=== PATIENT | male | born 1935 | race Caucasian/White ===

== ENCOUNTER → 2017-11-19 12:27 | Outpatient (CLI) | payer MEDICARE, BC, OTHER, SELFPAY ==
[2017-11-19 12:30] VITALS: PULSE 76; PULSE 80; PULSE 81; PULSE 84; PULSE 88; PULSE 89; O2SAT 97; O2SAT 98
--- NOTE | 2017-11-21 07:27 | WT_ITS ---
PSN 6 Minute Walk Test - 6 Minute Walk Test 6 Minute Walk Test: 6 Minute Walk Test PSN:6-Minute Walk Test Start: 11/19/17 14: 21 Freq: Status: Active Protocol: [id number] Document 11/19/17 12:30 JLA (Rec: 11/19/17 14:27 JLA [id number]) 6 Minute Walk Test Date Performed 11/19/17 Time Performed 12:30 Height 5 ft 8 in Weight: 197 lb 4.97 oz Weight in Pounds 197.[address]: Jaylene Young Assistive device used: None Pre-test Oxygen Delivery Method Room Air Pulse Ox (%) 98 Pulse Rate (60-100 beats/min) 76 Dyspnea Dudley Scale (0-10) 1 Exertion Dudley Scale (6-20) 6 1st minute Oxygen Delivery Method Room Air Pulse Ox (%) 97 Pulse Rate (60-100 beats/min) 81 2nd minute Oxygen Delivery Method Room Air Pulse Ox (%) 97 Pulse Rate (60-100 beats/min) 84 3rd minute Oxygen Delivery Method Room Air Pulse Ox (%) 98 Pulse Rate (60-100 beats/min) 88 4th minute Oxygen Delivery Method Room Air Pulse Ox (%) 98 Pulse Rate (60-100 beats/min) 89 Reported Symptoms Increased Work of Breathing 5th minute Oxygen Delivery Method Room Air Pulse Ox (%) 97 Pulse Rate (60-100 beats/min) 89 Reported Symptoms Increased Work of Breathing 6th minute Oxygen Delivery Method Room Air Pulse Ox (%) 98 Pulse Rate (60-100 beats/min) 84 Dyspnea Dudley Scale (0-10) 8 Exertion Dudley Scale (6-20) 13 Reported Symptoms Increased Work of Breathing Post-test Oxygen Delivery Method Room Air Pulse Ox (%) 98 Pulse Rate (60-100 beats/min) 80 Full Laps Walked 22 Partial Lap, Number of Tiles Walked 46 Total Distance Walked (ft) 1344 - Interpretation Interpretation: The patient ambulated 1344 feet over the course of 6 minutes on room air without assistive devices or breaks. Pretesting oxygen saturation was noted to be 98% on room air. With ambulation, the yvette oxygen saturation was 97%. There was no significant exertional oxygen desaturation. - Recommendations Recommendations: There is no indication for the use of supplemental oxygen at this time.
== END ==
PROVIDERS: Visit Provider Nurse Practitioner Acute Care
DX: J44.9 Chronic obstructive pulmonary disease, unspecified (principal)
CPT/HCPCS: 94618

== ENCOUNTER 2018-03-23 02:06 | Inpatient (IN) | payer MEDICARE, BC, OTHER, SELFPAY ==
[2018-03-23] VITALS (12 sets, daily range): BP systolic 141–153; BP diastolic 60–89; PULSE 65–95; RESP 16–18; TEMP 36.6–36.9; O2SAT 95–100; BMI 30.1
--- NOTE | 2018-03-23 03:33 | PCM.HP.STD ---
Problem List (1) COPD (chronic obstructive pulmonary disease) Status: Chronic Qualifiers: History of Present Illness Date of Admission: 03/23/18 Chief Complaint: chills, rigors and vomitting x 1 day The patient is a 83 year old M with a significant history of CAD status post quadruple bypass; hypertension; COPD who presented with chills, rigors, and vomiting 1 hour after eating cornered beef sandwich. He originally presented to [facility] where an abdominal CT was done because of the vomiting. The abdominal CT was remarkable for left lower lobe focal infiltrate. Because patient sees Dr. Kenny Hanna and Dr. Antwon Jacobson certified scrub tech a decision was made to transfer the patient to our hospital. Patient has a chronic cough which is no change from his baseline. Also he has a yellow productive cough in the morning that is also no change from his baseline. At [facility] patient received azithromycin; ceftriaxone and Zofran. Blood cultures were done at [facility]. Past Medical History Past Medical History (Chronic Problems): Chronic Problems (Last Reviewed 03/23/18 @ 03:41 by Marciano Addison MD) Carotid artery disease (Chronic) Cerebral infarction (Chronic) Gross hematuria (Chronic) Dyspnea (Chronic) Cough (Chronic) Wheezing (Chronic) Asthma (Chronic) Hypertensive urgency (Chronic) Sinusitis (Chronic) Hypertension (Chronic) Atherosclerotic heart disease of [place] coronary artery without angina pectoris (Chronic) Hyperlipidemia (Chronic) COPD (chronic obstructive pulmonary disease) (Chronic) Medical History: Medical History (Last Reviewed 03/23/18 @ 03:41 by Marciano Addison MD) History of CVA (cerebrovascular accident) (Acute) Z86.73 Carotid artery disease (Chronic) I77.9 Cerebral infarction (Chronic) I63.9 Gross hematuria (Chronic) R31.0 Dyspnea (Chronic) R06.00 Cough (Chronic) R05 Wheezing (Chronic) R06.2 Asthma (Chronic) J45.909 Acute bronchitis (Acute) J20.9 Hypertensive urgency (Chronic) I16.0 Sinusitis (Chronic) J32.9 Asthma exacerbation (Resolved) J45.901 Hypertension (Chronic) I10 Atherosclerotic heart disease of [place] coronary artery without angina pectoris (Chronic) I25.10 Hyperlipidemia (Chronic) E78.5 COPD (chronic obstructive pulmonary disease) (Chronic) J44.9 History of atrial fibrillation (Resolved) Z86.79 Dizziness (Inactive) R42 Allergies atorvastatin [From Lipitor] Allergy (Severe, Verified 11/11/17 07:06) Throat swelling and cough apixaban [From Eliquis] Adverse Reaction (Intermediate, Verified 11/11/17 07:06) Nose bleed dabigatran etexilate [From Pradaxa] Adverse Reaction (Intermediate, Verified 11/11/17 07:06) Hematuria alcohol Adverse Reaction (Verified 03/23/18 03:13) DOESNT FEEL GOOD CAN DRINK OUZO THATS IT PER PT Home Medications: Ambulatory Orders Medication Instructions Recorded Aspirin [Aspir-Low] 81 mg PO DAILY 08/25/16 Losartan Potassium [Cozaar] 50 mg PO BID 08/25/16 Metoprolol Tartrate [Lopressor 50 mg PO BID 08/25/16 (Beta Leonard)] albuterol sulfate HFA 90 2 puff INHALATION Q4H PRN #3 device 07/29/17 mcg/actuation aerosol inhaler fluticasone-salmeterol 230 mcg-21 2 puff INHALATION BID 11/11/17 mcg/actuation HFA aerosol inhaler Azelastine HCl 1 spray NASAL QHS 03/23/18 Fluticasone Propionate 1 spray NASAL DAILY 03/23/18 Surgical History: Surgical History (Last Reviewed 03/23/18 @ 03:41 by Marciano Addison MD) Status post nasal endoscopy with nasal polypectomy (Resolved) Z98.890, Z87.09 History of hernia repair (Resolved) Z98.890, Z87.19 History of tonsillectomy (Resolved) Z90.89 History of appendectomy (Resolved) Z90.49 S/P CABG x 4 (Resolved) Z95.1 Surgical History: tonsillectomy, - - CABG Lives: Spouse/ Significant Other Smoking Status: Former smoker Alcohol: Occasional - *Family History Maternal Family History: Family History (Last Reviewed 03/23/18 @ 03:41 by Marciano Addison MD) Mother Colon cancer Father Cancer Daughter Arthritis Review of Systems Constitutional: Reports: Chills HEENT: Reports: Difficulty Hearing. Denies: Head Aches, Sinus Congestion, Sinus Drainage Cardiovascular: Denies: Chest Pain, Palpitations Respiratory: Reports: Cough - Chronic Gastrointestinal: Reports: Nausea, Vomiting. Denies: Abdominal Pain Genitourinary: Reports: Incontinence - accidentally today at about the time of his presenting symptoms. Denies: Dysuria Musculoskeletal: Denies: Joint Pain, Joint Tenderness Skin: Denies: Rash, Wounds Neurological: Denies: Numbness, Tingling, Focal weakness Psychiatric: Denies: Anxiety, Depression, Homicidal Ideations, Suicidal Ideations Hematologic/ Lymphatic: Denies: Easy Bruising, Easy Bleeding VTE Information - Inpt Only VTE Present on Admission: No VTE Mechan Device Prophylaxis: None VTE Pharm Prophylaxis ordered?: Yes - Physical Exam General: Alert, Oriented x3, Cooperative HEENT: Atraumatic, PERRLA, EOMI, Normocephalic Neck: Supple, No JVD, Negative Carotid Bruits Lungs: Wheezes Cardiovascular: Regular rate, Normal S1, Normal S2 Abdomen: Bowel Sounds Present, Soft, Non Tender Extremities: No edema, Capillary Refill Less than 3 Seconds Skin: No rashes, No breakdown Musculoskeletal: No Tenderness to Palpation of Joints or Extremities Neurological: - - Hare of hearinng. Hearing aids in place. Grossly normal otherwise. Psych/Mental Status: Normal Affect Vital Signs Temp Pulse Resp BP Pulse Ox 98.3 F 86 18 153/84 H 97 03/23/18 03:04 03/23/18 03:04 03/23/18 03:04 03/23/18 03:04 03/23/18 03:04 Oxygen Delivery Method Room Air Weight: 89.9 kg Body Mass Index (BMI) 30.1 Assessment/Plan All Active Problems (Last Reviewed 03/23/18 @ 03:41 by Marciano Addison MD) Status post nasal endoscopy with nasal polypectomy (Resolved) History of hernia repair (Resolved) History of tonsillectomy (Resolved) History of appendectomy (Resolved) History of CVA (cerebrovascular accident) (Acute) Acute bronchitis (Acute) Asthma exacerbation (Resolved) S/P CABG x 4 (Resolved) History of atrial fibrillation (Resolved) The patient is a 83 year old M with a significant history of CAD status post quadruple bypass; hypertension; COPD who presented with chills, rigors, and vomiting 1 hour after eating cornered beef sandwich. He originally presented to [facility] where an abdominal CT was done because of the vomiting. The abdominal CT was remarkable for left lower lobe focal infiltrate. Because patient sees Dr. Kenny Hanna and Dr. Antwon Jacobson certified scrub tech a decision was made to transfer the patient to our hospital. Patient has a chronic cough which is no change from his baseline. Also he has a yellow productive cough in the morning that is also no change from his baseline. At [facility] patient received azithromycin; ceftriaxone and Zofran. Blood cultures were done at [facility]. Community-acquired pneumonia Rocephin and azithromycin continued Streptococcus and Legionella antigen ordered DuoNeb scheduled and albuterol as needed Percussion therapy COPD Breathing treatment as above. Hypertension Blood pressure was within goal at the time of admission. Cozaar and metoprolol continued. DVT prophylaxis Subcutaneous heparin. Code Visit Inpatient E&M: 67572 Init Hosp L3
--- NOTE | 2018-03-23 03:40 | HP.PCM_ITS ---
Problem List (1) COPD (chronic obstructive pulmonary disease) Status: Chronic Qualifiers: History of Present Illness Date of Admission: 03/23/18 Chief Complaint: chills, rigors and vomitting x 1 day The patient is a 83 year old M with a significant history of CAD status post quadruple bypass; hypertension; COPD who presented with chills, rigors, and vomiting 1 hour after eating cornered beef sandwich. He originally presented to [facility] where an abdominal CT was done because of the vomiting. The abdominal CT was remarkable for left lower lobe focal infiltrate. Because patient sees Dr. Kenny Hanna and Dr. Antwon Jacobson title insurance sales representative a decision was made to transfer the patient to our hospital. Patient has a chronic cough which is no change from his baseline. Also he has a yellow productive cough in the morning that is also no change from his baseline. At [facility] patient received azithromycin; ceftriaxone and Zofran. Blood cultures were done at [facility]. Past Medical History Past Medical History (Chronic Problems): Chronic Problems (Last Reviewed 03/23/18 @ 03:41 by Marciano Addison MD) Carotid artery disease (Chronic) Cerebral infarction (Chronic) Gross hematuria (Chronic) Dyspnea (Chronic) Cough (Chronic) Wheezing (Chronic) Asthma (Chronic) Hypertensive urgency (Chronic) Sinusitis (Chronic) Hypertension (Chronic) Atherosclerotic heart disease of [place] coronary artery without angina pectoris (Chronic) Hyperlipidemia (Chronic) COPD (chronic obstructive pulmonary disease) (Chronic) Medical History: Medical History (Last Reviewed 03/23/18 @ 03:41 by Marciano Addison MD) History of CVA (cerebrovascular accident) (Acute) Z86.73 Carotid artery disease (Chronic) I77.9 Cerebral infarction (Chronic) I63.9 Gross hematuria (Chronic) R31.0 Dyspnea (Chronic) R06.00 Cough (Chronic) R05 Wheezing (Chronic) R06.2 Asthma (Chronic) J45.909 Acute bronchitis (Acute) J20.9 Hypertensive urgency (Chronic) I16.0 Sinusitis (Chronic) J32.9 Asthma exacerbation (Resolved) J45.901 Hypertension (Chronic) I10 Atherosclerotic heart disease of [place] coronary artery without angina pectoris (Chronic) I25.10 Hyperlipidemia (Chronic) E78.5 COPD (chronic obstructive pulmonary disease) (Chronic) J44.9 History of atrial fibrillation (Resolved) Z86.79 Dizziness (Inactive) R42 Allergies atorvastatin [From Lipitor] Allergy (Severe, Verified 11/11/17 07:06) Throat swelling and cough apixaban [From Eliquis] Adverse Reaction (Intermediate, Verified 11/11/17 07:06) Nose bleed dabigatran etexilate [From Pradaxa] Adverse Reaction (Intermediate, Verified 09/26 07:06) Hematuria alcohol Adverse Reaction (Verified 03/23/18 03:13) DOESNT FEEL GOOD CAN DRINK OUZO THATS IT PER PT Home Medications: Ambulatory Orders Medication Instructions Recorded Aspirin [Aspir-Low] 81 mg PO DAILY 08/25/16 Losartan Potassium [Cozaar] 50 mg PO BID 08/25/16 Metoprolol Tartrate [Lopressor 50 mg PO BID 08/25/16 (Beta Leonard)] albuterol sulfate HFA 90 2 puff INHALATION Q4H PRN #3 device 07/29/17 mcg/actuation aerosol inhaler fluticasone-salmeterol 230 mcg-21 2 puff INHALATION BID 11/11/17 mcg/actuation HFA aerosol inhaler Azelastine HCl 1 spray NASAL QHS 03/23/18 Fluticasone Propionate 1 spray NASAL DAILY 03/23/18 Surgical History: Surgical History (Last Reviewed 03/23/18 @ 03:41 by Marciano Addison MD) Status post nasal endoscopy with nasal polypectomy (Resolved) Z98.890, Z87.09 History of hernia repair (Resolved) Z98.890, Z87.19 History of tonsillectomy (Resolved) Z90.89 History of appendectomy (Resolved) Z90.49 S/P CABG x 4 (Resolved) Z95.1 Surgical History: tonsillectomy, - - CABG Lives: Spouse/ Significant Other Smoking Status: Former smoker Alcohol: Occasional - *Family History Maternal Family History: Family History (Last Reviewed 03/23/18 @ 03:41 by Marciano Addison MD) Mother Colon cancer Father Cancer Daughter Arthritis Review of Systems Constitutional: Reports: Chills HEENT: Reports: Difficulty Hearing. Denies: Head Aches, Sinus Congestion, Sinus Drainage Cardiovascular: Denies: Chest Pain, Palpitations Respiratory: Reports: Cough - Chronic Gastrointestinal: Reports: Nausea, Vomiting. Denies: Abdominal Pain Genitourinary: Reports: Incontinence - accidentally today at about the time of his presenting symptoms. Denies: Dysuria Musculoskeletal: Denies: Joint Pain, Joint Tenderness Skin: Denies: Rash, Wounds Neurological: Denies: Numbness, Tingling, Focal weakness Psychiatric: Denies: Anxiety, Depression, Homicidal Ideations, Suicidal Ideations Hematologic/ Lymphatic: Denies: Easy Bruising, Easy Bleeding VTE Information - Inpt Only VTE Present on Admission: No VTE Mechan Device Prophylaxis: None VTE Pharm Prophylaxis ordered?: Yes - Physical Exam General: Alert, Oriented x3, Cooperative HEENT: Atraumatic, PERRLA, EOMI, Normocephalic Neck: Supple, No JVD, Negative Carotid Bruits Lungs: Wheezes Cardiovascular: Regular rate, Normal S1, Normal S2 Abdomen: Bowel Sounds Present, Soft, Non Tender Extremities: No edema, Capillary Refill Less than 3 Seconds Skin: No rashes, No breakdown Musculoskeletal: No Tenderness to Palpation of Joints or Extremities Neurological: - - Hare of hearinng. Hearing aids in place. Grossly normal otherwise. Psych/Mental Status: Normal Affect Vital Signs Temp Pulse Resp BP Pulse Ox 98.3 F 86 18 153/84 H 97 03/23/18 03:04 03/23/18 03:04 03/23/18 03:04 03/23/18 03:04 03/23/18 03:04 Oxygen Delivery Method Room Air Weight: 89.9 kg Body Mass Index (BMI) 30.1 Assessment/Plan All Active Problems (Last Reviewed 03/23/18 @ 03:41 by Marciano Addison MD) Status post nasal endoscopy with nasal polypectomy (Resolved) History of hernia repair (Resolved) History of tonsillectomy (Resolved) History of appendectomy (Resolved) History of CVA (cerebrovascular accident) (Acute) Acute bronchitis (Acute) Asthma exacerbation (Resolved) S/P CABG x 4 (Resolved) History of atrial fibrillation (Resolved) The patient is a 83 year old M with a significant history of CAD status post quadruple bypass; hypertension; COPD who presented with chills, rigors, and vomiting 1 hour after eating cornered beef sandwich. He originally presented to [facility] where an abdominal CT was done because of the vomiting. The abdominal CT was remarkable for left lower lobe focal infiltrate. Because patient sees Dr. Kenny Hanna and Dr. Antwon Jacobson title insurance sales representative a decision was made to transfer the patient to our hospital. Patient has a chronic cough which is no change from his baseline. Also he has a yellow productive cough in the morning that is also no change from his baseline. At [facility] patient received azithromycin; ceftriaxone and Zofran. Blood cultures were done at [facility]. Community-acquired pneumonia Rocephin and azithromycin continued Streptococcus and Legionella antigen ordered DuoNeb scheduled and albuterol as needed Percussion therapy COPD Breathing treatment as above. Hypertension Blood pressure was within goal at the time of admission. Cozaar and metoprolol continued. DVT prophylaxis Subcutaneous heparin. Code Visit Inpatient E&M: 67880 Init Hosp L3
[2018-03-23 05:03] LABS: Absolute Lymphocyte Count 0.87 X10^3/ul (0.83-4.51); Absolute Neutrophil Count 16.2 X10^3/uL (2.0-7.7); Basophil# 0.02 X10^3/uL; Basophil% 0.1 % (0-1); Eosinophil# 0.01 X10^3/uL; Eosinophils% 0.1 % (0-5); Hematocrit 44.7 % (40-54); Hemoglobin 15.4 g/dl (13.0-16.5); Lymphocyte # 0.87 X10^3/ul (4.0); Lymphocyte % 4.7 % (19-41); Mean Corp Hgb Conc 34.5 g/gl (32-36); Mean Corpuscular Hgb 29.7 pg (27.0-32.0); Mean Corpuscular Volume 86.1 fL (80-94); Mean Platelet Vol. 9.3 fl (6.2-12.0); Monocyte# 1.29 X10^3/uL; Neutrophil # 16.23 X10^3/uL (2.7-7.7); Neutrophil % 87.8 % (47-70); Platelet Count 205 K/mm3 (150-450); RBC Distribution Width CV 13.9 % (11.6-14.6); Red Blood Count 5.19 M/mm3 (4.6-6.2); White Blood Count 18.5 K/mm3 (4.4-11.0)
[2018-03-23 05:16] LABS: Anion Gap 11 (5-15); BUN 19 mg/dL (7-18); BUN/Creat Ratio 15.4 RATIO (10-20); Calcium,Total 8.9 mg/dL (8.5-10.1); Chloride 105 mmol/L (98-107); Creatinine, Serum 1.23 mg/dL (0.70-1.30); EST Glomerular Filtration Rate 60 mL/min (>60); Est Glom Filt Rate - Afr Amer 73 mL/min (>60); Estimated Creatinine Clearance 45.57 ml/min; Glucose 134 mg/dL (74-106); Potassium 3.9 mmol/L (3.5-5.1); Sodium Level 141 mmol/L (136-145)
[2018-03-23 05:17] LABS: POSITIVE COUNT NO; POSITIVE DIFFERENTIAL NO; POSITIVE MORPHOLOGY NO
[2018-03-23] MEDS: Ipratropium/Albuterol Sulfate 3 ML AMPUL.NEB INHALATION ×4 (06:52→22:39)
[2018-03-23] MEDS: Budesonide Respules 0.5 MG/2 ML AMPUL.NEB. INHALATION ×2 (06:53→22:39)
[2018-03-23] MEDS: guaiFENesin 1,200 MG Tablet 1200 MG PO ×2 (08:28→21:04)
[2018-03-23] MEDS: Losartan Potassium 50 MG Tablet PO ×2 (08:28→21:04)
[2018-03-23] MEDS: Aspirin E.C. 81 MG Tablet PO (08:28)
[2018-03-23] MEDS: Heparin Injection (Vial) 5,000 UNIT/ML VIAL 5000 UNIT SC ×2 (08:29→21:03)
[2018-03-23] MEDS: Metoprolol Tartrate 50 MG Tablet PO ×2 (08:29→21:05)
[2018-03-23] MEDS: Fluticasone 0.05% 1 SPRAY NASAL.SRY NASAL (08:38)
--- NOTE | 2018-03-23 15:46 | CASEMGMT ---
JADA CM Assessment complete, see link. DC Plan: Home -Pt stated his did not renew her [place] truck driver's license so she cannot pick pt up tomorrow. He will be calling local friends for ride home. Antony ALVES RN ACM
--- NOTE | 2018-03-23 16:19 | PCM.PN.HOSP ---
Vitals/I&O's: Vital Signs Temp Pulse Resp BP Pulse Ox 98.1 F 74 16 146/69 H 97 03/23/18 14:30 03/23/18 15:12 03/23/18 15:12 03/23/18 14:30 03/23/18 14:30 Oxygen Delivery Method Room Air Weight: 90 kg Body Mass Index (BMI) 30.1 Microbiology Past 72 Hours 03/23/18 09:25 Urine, Clean Catch Streptococcus pneumoniae Antigen (M - Final 03/23/18 09:25 Urine, Clean Catch Legionella Antigen - Final Laboratory Results 03/23/18 04:54: Sodium 141, Potassium 3.9, Chloride 105, Carbon Dioxide 25.0, Anion Gap 11, BUN 19 H, Creatinine 1.23, Estim Creat Clear Calc 45.57, Est GFR (MDRD) Af Amer 73, Est GFR (MDRD) Non-Af 60, BUN/Creatinine Ratio 15.4, Glucose 134 H, Calcium 8.9 03/23/18 04:54: WBC 18.5 H, RBC 5.19, Hgb 15.4, Hct 44.7, MCV 86.1, MCH 29.7, MCHC 34.5, RDW 13.9, RDW Differential 43.0, Plt Count 205, MPV 9.3, Immature Gran % (Auto) 0.300, Neut % (Auto) 87.8 H, Lymph % (Auto) 4.7 L, [place] % (Auto) 7.0, Eos % (Auto) 0.1, Baso % (Auto) 0.1, Absolute Neuts (auto) 16.2 H, Absolute Lymphs (auto) 0.87, Total Counted Not Reportable Current Medications Acetaminophen (Tylenol) 650 mg PO Q6H PRN PRN PRN Reason: Mild Pain (1-3)/Temp > 100.7 F Albuterol Sulfate (Ventolin Aerosols) 2.5 mg INHALATION Q2H PRN PRN PRN Reason: SHORTNESS OF BREATH Albuterol/Ipratropium (Duoneb) 3 ml INHALATION Q4H.RT [facility] Last Admin: 03/23/18 15:12 Dose: 3 ml Aspirin (Ecotrin) 81 mg PO DAILYCM [facility] Last Admin: 03/23/18 08:28 Dose: 81 mg Azelastine HCl (Azelastine Hcl) 0 mcg NS QHS [facility] Bisacodyl (Dulcolax) 5 mg PO DAILY PRN PRN PRN Reason: Constipation Budesonide (Pulmicort Aerosol) 0.5 mg INHALATION BID.RT [facility] Last Admin: 03/23/18 06:53 Dose: 0.5 mg Fluticasone Propionate (Flonase Nasal [place]) 1 spray NASAL DAILY [facility] Last Admin: 03/23/18 08:38 Dose: 1 spray Guaifenesin (Mucinex) 1,200 mg PO BID [facility] Last Admin: 03/23/18 08:28 Dose: 1,200 mg Heparin Sodium (Porcine) (Heparin Na) 5,000 unit SC Q12 [facility] Last Admin: 03/23/18 08:29 Dose: 5,000 unit Azithromycin 500 mg/ Dextrose 255 mls @ 250 mls/hr IV Q24H [facility] Stop: 03/25/18 23:02 Ceftriaxone Sodium (Rocephin) 1 gm in 50 mls @ 100 mls/hr IV Q24H [facility] Losartan Potassium (Cozaar) 50 mg PO BID [facility] Last Admin: 03/23/18 08:28 Dose: 50 mg Magnesium Hydroxide (Milk Of Magnesia) 30 ml PO DAILY PRN PRN PRN Reason: Constipation Metoprolol Tartrate (Lopressor (Beta Leonard)) 50 mg PO BID [facility] Last Admin: 03/23/18 08:29 Dose: 50 mg Ondansetron HCl (Zofran) 4 mg IV Q8H PRN PRN PRN Reason: NAUSEA Sodium Chloride () 5 - 30 ml IV UD PRN PRN Reason: SALINE FLUSH Zolpidem Tartrate (Ambien (Generic)) 5 mg PO QHS PRN PRN PRN Reason: INSOMNIA Medical Necessity - Tobacco Use Smoking Status: Former smoker Assessment/Plan All Active Problems (Last Reviewed 03/23/18 @ 03:41 by Marciano Addison MD) Status post nasal endoscopy with nasal polypectomy (Resolved) History of hernia repair (Resolved) History of tonsillectomy (Resolved) History of appendectomy (Resolved) History of CVA (cerebrovascular accident) (Acute) Acute bronchitis (Acute) Asthma exacerbation (Resolved) S/P CABG x 4 (Resolved) History of atrial fibrillation (Resolved) Patient seen and examined Transferred here to his his auditor in charge Actually presented at [facility] with abdominal symptoms suggestive of acute food poisoning Had CT of the abdomen which showed some infiltrate/atelectasis in the left lower lobe and patient was told he had pneumonia. Decision was made to transfer patient here to his his auditor in charge Currently GI symptoms have resolved. Ate all his lunch Quit smoking at age 29 yet has been diagnosed with COPD by his PCP and has been on rescue inhalers. Doubt the validity of this diagnosis On exam no respiratory distress and lung exam mild crackles in lung bases. Doubt patient has pneumonia. Patient still insistent on seeing auditor in charge and so will oblige. Observe for another 24 hours and if stable then will discharge
--- NOTE | 2018-03-23 16:28 | PN_ITS ---
Vitals/I&O's: Vital Signs Temp Pulse Resp BP Pulse Ox 98.1 F 74 16 146/69 H 97 03/23/18 14:30 03/23/18 15:12 03/23/18 15:12 03/23/18 14:30 03/23/18 14:30 Oxygen Delivery Method Room Air Weight: 90 kg Body Mass Index (BMI) 30.1 Microbiology Past 72 Hours 03/23/18 09:25 Urine, Clean Catch Streptococcus pneumoniae Antigen (M - Final 03/23/18 09:25 Urine, Clean Catch Legionella Antigen - Final Laboratory Results 03/23/18 04:54: Sodium 141, Potassium 3.9, Chloride 105, Carbon Dioxide 25.0, Anion Gap 11, BUN 19 H, Creatinine 1.23, Estim Creat Clear Calc 45.57, Est GFR ( MDRD) Af Amer 73, Est GFR (MDRD) Non-Af 60, BUN/Creatinine Ratio 15.4, Glucose 134 H, Calcium 8.9 03/23/18 04:54: WBC 18.5 H, RBC 5.19, Hgb 15.4, Hct 44.7, MCV 86.1, MCH 29.7, MCHC 34.5, RDW 13.9, RDW Differential 43.0, Plt Count 205, MPV 9.3, Immature Gran % (Auto) 0.300, Neut % (Auto) 87.8 H, Lymph % (Auto) 4.7 L, [place] % (Auto) 7.0, Eos % (Auto) 0.1, Baso % (Auto) 0.1, Absolute Neuts (auto) 16.2 H, Absolute Lymphs (auto) 0.87, Total Counted Not Reportable Current Medications Acetaminophen (Tylenol) 650 mg PO Q6H PRN PRN PRN Reason: Mild Pain (1-3)/Temp > 100.7 F Albuterol Sulfate (Ventolin Aerosols) 2.5 mg INHALATION Q2H PRN PRN PRN Reason: SHORTNESS OF BREATH Albuterol/Ipratropium (Duoneb) 3 ml INHALATION Q4H.RT [facility], [facility] Last Admin: 03/23/18 15:12 Dose: 3 ml Aspirin (Ecotrin) 81 mg PO DAILYCM [facility], [facility] Last Admin: 03/23/18 08:28 Dose: 81 mg Azelastine HCl (Azelastine Hcl) 0 mcg NS QHS [facility], [facility] Bisacodyl (Dulcolax) 5 mg PO DAILY PRN PRN PRN Reason: Constipation Budesonide (Pulmicort Aerosol) 0.5 mg INHALATION BID.RT [facility], [facility] Last Admin: 03/23/18 06:53 Dose: 0.5 mg Fluticasone Propionate (Flonase Nasal [place]) 1 spray NASAL DAILY [facility], [facility] Last Admin: 03/23/18 08:38 Dose: 1 spray Guaifenesin (Mucinex) 1,200 mg PO BID [facility] Last Admin: 03/23/18 08:28 Dose: 1,200 mg Heparin Sodium (Porcine) (Heparin Na) 5,000 unit SC Q12 [facility], [facility] Last Admin: 03/23/18 08:29 Dose: 5,000 unit Azithromycin 500 mg/ Dextrose 255 mls @ 250 mls/hr IV Q24H [facility]1983 Stop: 03/25/18 23:02 Ceftriaxone Sodium (Rocephin) 1 gm in 50 mls @ 100 mls/hr IV Q24H [facility] Losartan Potassium (Cozaar) 50 mg PO BID [facility] Last Admin: 03/23/18 08:28 Dose: 50 mg Magnesium Hydroxide (Milk Of Magnesia) 30 ml PO DAILY PRN PRN PRN Reason: Constipation Metoprolol Tartrate (Lopressor (Beta [place])) 50 mg PO BID [facility] Last Admin: 03/23/18 08:29 Dose: 50 mg Ondansetron HCl (Zofran) 4 mg IV Q8H PRN PRN PRN Reason: NAUSEA Sodium Chloride () 5 - 30 ml IV UD PRN PRN Reason: SALINE FLUSH Zolpidem Tartrate (Ambien (Generic)) 5 mg PO QHS PRN PRN PRN Reason: INSOMNIA Medical Necessity - Tobacco Use Smoking Status: Former smoker Assessment/Plan All Active Problems (Last Reviewed 03/23/18 @ 03:41 by Marciano Addison MD) Status post nasal endoscopy with nasal polypectomy (Resolved) History of hernia repair (Resolved) History of tonsillectomy (Resolved) History of appendectomy (Resolved) History of CVA (cerebrovascular accident) (Acute) Acute bronchitis (Acute) Asthma exacerbation (Resolved) S/P CABG x 4 (Resolved) History of atrial fibrillation (Resolved) Patient seen and examined Transferred here to his his administrative support technician Actually presented at [place] [facility] with abdominal symptoms suggestive of acute food poisoning Had CT of the abdomen which showed some infiltrate/atelectasis in the left lower lobe and patient was told he had pneumonia. Decision was made to transfer patient here to his his administrative support technician Currently GI symptoms have resolved. Ate all his lunch Quit smoking at age 29 yet has been diagnosed with COPD by his PCP and has been on rescue inhalers. Doubt the validity of this diagnosis On exam no respiratory distress and lung exam mild crackles in lung bases. Doubt patient has pneumonia. Patient still insistent on seeing administrative support technician and so will oblige. Observe for another 24 hours and if stable then will discharge
[2018-03-23] MEDS: 0.9% NaCl Peripheral Flush Adult/Peds IV ×2 (21:03→21:08)
[2018-03-23] MEDS: Ceftriaxone 1 GM/50 ML BAG IV (21:03)
[2018-03-23] MEDS: 0.9% NaCl IVPB Med Flush (250 mL) 15 ML IV (22:02)
[2018-03-24 05:23] VITALS: BP 141/71; PULSE 79; RESP 16; TEMP 37.2; O2SAT 98
[2018-03-24 07:08] VITALS: PULSE 71; RESP 16; O2SAT 97
[2018-03-24] MEDS: Budesonide Respules 0.5 MG/2 ML AMPUL.NEB. INHALATION (07:08)
[2018-03-24] MEDS: Ipratropium/Albuterol Sulfate 3 ML AMPUL.NEB INHALATION (07:08)
--- NOTE | 2018-03-24 07:34 | PCM.CONS.GEN ---
Reason for Consult Date of Consultation: 03/24/18 Reason for Consultation: COPD exacerbation History of Present Illness: The patient is an 83-year-old male, with a history as outlined below, who presented to [facility] on March 23 as a transfer from [facility], after the patient presented there with complaints of nausea and vomiting. The patient believed that he had developed food poisoning after having ingested a sandwich prior to the development of his symptoms. It appears that a CT abdomen/pelvis was obtained in the emergency department at [place] which reportedly revealed evidence of a left lower lobe pneumonia. The patient was placed on ceftriaxone and azithromycin. Due to the lack of pulmonary specialty coverage there, the patient was transferred here for evaluation. The patient routinely follows with Dr. Hanna on an outpatient basis. He was last seen in the pulmonary medicine clinic by her nurse practitioner in November 2017. Pulmonary function testing completed in October 2016 revealed evidence of a partially reversible moderately severe mixed ventilatory defect with reduction in diffusing capacity. 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 He is maintained on scheduled Advair and as needed albuterol. He was also given a sample of Spiriva at his last office visit. 6 minute walk test also completed in November 2017 revealed no significant exertional oxygen desaturation. At the present time, the patient is afebrile hemodynamically stable. He is maintaining appropriate oxygen saturations on room air. He has been maintained on scheduled bronchodilators, as well as antibiotics since his admission. The patient has a very remote smoking history and states that he has been routinely taking 2.5 mg of prednisone daily as he feels that it helps with his chronic cough. Past Medical History Past Medical History (Chronic Problems): Chronic Problems (Last Reviewed 03/23/18 @ 03:41 by Marciano Addison MD) Carotid artery disease (Chronic) Cerebral infarction (Chronic) Gross hematuria (Chronic) Dyspnea (Chronic) Cough (Chronic) Wheezing (Chronic) Asthma (Chronic) Hypertensive urgency (Chronic) Sinusitis (Chronic) Hypertension (Chronic) Atherosclerotic heart disease of [place] coronary artery without angina pectoris (Chronic) Hyperlipidemia (Chronic) COPD (chronic obstructive pulmonary disease) (Chronic) Medical History: Medical History (Last Reviewed 03/23/18 @ 03:41 by Marciano Addison MD) History of CVA (cerebrovascular accident) (Acute) Z86.73 Carotid artery disease (Chronic) I77.9 Cerebral infarction (Chronic) I63.9 Gross hematuria (Chronic) R31.0 Dyspnea (Chronic) R06.00 Cough (Chronic) R05 Wheezing (Chronic) R06.2 Asthma (Chronic) J45.909 Acute bronchitis (Acute) J20.9 Hypertensive urgency (Chronic) I16.0 Sinusitis (Chronic) J32.9 Asthma exacerbation (Resolved) J45.901 Hypertension (Chronic) I10 Atherosclerotic heart disease of [place] coronary artery without angina pectoris (Chronic) I25.10 Hyperlipidemia (Chronic) E78.5 COPD (chronic obstructive pulmonary disease) (Chronic) J44.9 History of atrial fibrillation (Resolved) Z86.79 Dizziness (Inactive) R42 Allergies atorvastatin [From Lipitor] Allergy (Severe, Verified 11/11/17 07:06) Throat swelling and cough apixaban [From Eliquis] Adverse Reaction (Intermediate, Verified 11/11/17 07:06) Nose bleed dabigatran etexilate [From Pradaxa] Adverse Reaction (Intermediate, Verified 11/11/17 07:06) Hematuria alcohol Adverse Reaction (Verified 03/23/18 03:13) DOESNT FEEL GOOD CAN DRINK OUZO THATS IT PER PT Home Medications: Ambulatory Orders Medication Instructions Recorded Aspirin [Aspir-Low] 81 mg PO DAILY 08/25/16 Losartan Potassium [Cozaar] 50 mg PO BID 08/25/16 Metoprolol Tartrate [Lopressor 50 mg PO BID 08/25/16 (beta serenity)] albuterol sulfate HFA 90 2 puff INHALATION Q4H PRN #3 device 07/29/17 mcg/actuation aerosol inhaler fluticasone-salmeterol 230 mcg-21 2 puff INHALATION BID 11/11/17 mcg/actuation HFA aerosol inhaler Azelastine HCl 1 spray NASAL QHS 03/23/18 Fluticasone Propionate 1 spray NASAL DAILY 03/23/18 Surgical History: Surgical History (Last Reviewed 03/23/18 @ 03:41 by Marciano Addison MD) Status post nasal endoscopy with nasal polypectomy (Resolved) Z98.890, Z87.09 History of hernia repair (Resolved) Z98.890, Z87.19 History of tonsillectomy (Resolved) Z90.89 History of appendectomy (Resolved) Z90.49 S/P CABG x 4 (Resolved) Z95.1 Surgical History: tonsillectomy, - - CABG Lives: Spouse/ Significant Other Smoking Status: Former smoker Alcohol: Occasional - *Family History Maternal Family History: Family History (Last Reviewed 03/23/18 @ 03:41 by Marciano Addison MD) Mother Colon cancer Father Cancer Daughter Arthritis Review of Systems Constitutional: Denies: Chills, Fever Eyes: Denies: Blurred vision, Double vision HEENT: Denies: Head Aches, Sinus Congestion, Sinus Drainage Cardiovascular: Denies: Chest Pain, Palpitations Respiratory: Reports: Shortness of Breath. Denies: Cough, Sputum production Gastrointestinal: Reports: Nausea, Vomiting Genitourinary: Denies: Dysuria Musculoskeletal: Denies: Joint Pain, Joint Tenderness Skin: Denies: Rash, Wounds Neurological: Denies: Numbness, Tingling, Focal weakness Psychiatric: Denies: Anxiety, Depression, Homicidal Ideations, Suicidal Ideations Hematologic/ Lymphatic: Denies: Easy Bruising, Easy Bleeding Objective: The patient's most recent lab work, culture data and imaging studies have all been personally reviewed. Strep and urine Legionella antigens were negative. - Physical Exam General: Alert, Oriented x3, Cooperative, No apparent distress HEENT: Atraumatic, PERRLA, Normocephalic Oral: Moist Mucosa, No Gingival or Mucosal Lesions/ Ulcerations Neck: Supple, No Nodes, Trachea Midline Lungs: - - Lung malhotra are grossly clear to auscultation bilaterally without appreciable wheezes, rales or rhonchi. Cardiovascular: Regular rate, Regular Rhythm, Normal S1, Normal S2, No murmurs Abdomen: Bowel Sounds Present, Soft, Non Tender Extremities: No clubbing, No cyanosis, No edema Skin: No rashes, No breakdown Musculoskeletal: No Tenderness to Palpation of Joints or Extremities, No Muscle Wasting Lymphatic: No Cervical, Supraclavicular, or Inguinal Adenopathy Neurological: Neuro grossly intact Psych/Mental Status: Alert and oriented to time, place, person, mood and affect Vital Signs Temp Pulse Resp BP Pulse Ox 98.9 F 79 16 141/71 H 98 03/24/18 05:23 03/24/18 05:23 03/24/18 05:23 03/24/18 05:23 03/24/18 05:23 Oxygen Delivery Method Room Air Weight: 198 lb 6.656 oz Body Mass Index (BMI) 30.1 Microbiology Past 72 Hours 03/23/18 09:25 Streptococcus pneumoniae Antigen (M - Final Urine, Clean Catch 03/23/18 09:25 Legionella Antigen - Final Urine, Clean Catch Labs (Last 48 Hours) 03/23/18 03/23/18 04:54 04:54 WBC 18.5 H RBC 5.19 Hgb 15.4 Hct 44.7 MCV 86.1 MCH 29.7 MCHC 34.5 RDW 13.9 RDW Differential 43.0 Plt Count 205 MPV 9.3 Immature Gran % (Auto) 0.300 Neut % (Auto) 87.8 H Lymph % (Auto) 4.7 L [place] % (Auto) 7.0 Eos % (Auto) 0.1 Baso % (Auto) 0.1 Absolute Neuts (auto) 16.2 H Absolute Lymphs (auto) 0.87 Total Counted Not Reportable Sodium 141 Potassium 3.9 Chloride 105 Carbon Dioxide 25.0 Anion Gap 11 BUN 19 H Creatinine 1.23 Estim Creat Clear Calc 45.57 Est GFR (MDRD) Af Amer 73 Est GFR (MDRD) Non-Af 60 BUN/Creatinine Ratio 15.4 Glucose 134 H Calcium 8.9 Microbiology 03/23/18 09:25 Urine, Clean Catch Streptococcus pneumoniae Antigen (M - Final 03/23/18 09:25 Urine, Clean Catch Legionella Antigen - Final Assessment/Plan All Active Problems (Last Reviewed 03/23/18 @ 03:41 by Marciano Addison MD) Status post nasal endoscopy with nasal polypectomy (Resolved) History of hernia repair (Resolved) History of tonsillectomy (Resolved) History of appendectomy (Resolved) History of CVA (cerebrovascular accident) (Acute) Acute bronchitis (Acute) Asthma exacerbation (Resolved) S/P CABG x 4 (Resolved) History of atrial fibrillation (Resolved) RECOMMENDATIONS: 1. Okay from my perspective to discontinue antibiotics. 2. Discontinue budesonide and start prednisone 40 mg daily with plans for a 5 day burst. 3. Continue scheduled bronchodilators as ordered. 4. Perform walking oximetry study and if the patient is able to maintain oxygen saturations with ambulation, he can be discharged home from my perspective. 5. The patient is currently scheduled to follow-up with Dr. Kenny Hanna on May 16. He has been placed on the wait list for a sooner appointment, if one becomes available. 6. Resume baseline inhaler regimen at discharge. IMPRESSIONS: 1. Abdominal pain/nausea/vomiting Potentially secondary to a self-limited viral gastroenteritis. The patient is asymptomatic at this time. Outside hospital CT abdomen/pelvis revealed no significant intra-abdominal pathology. 2. Known COPD Although the patient was initially started on treatment for community-acquired pneumonia at [facility], upon my review of his CT abdomen/pelvis, the findings in his left lower lobe appear to be chronic in nature and are unlikely to represent an infectious etiology. In addition, the patient is at his baseline breathing quality and is not producing any sputum. Therefore, I would recommend discontinuation of antibiotics at this time. He does not appear to be experiencing an acute exacerbation of his underlying COPD. Recommend resumption of baseline inhalers at the time of his discharge. Please perform a walking oximetry study prior to consideration for discharge. This note was generated with [employer] dictation software. It may contain incorrect words, spelling, and punctuation that were not noted in checking the note before signing. Code Visit Inpatient E&M: 20956 Init Hosp L2
--- NOTE | 2018-03-24 07:43 | CON.PCM_ITS ---
Reason for Consult Date of Consultation: 03/24/18 Reason for Consultation: COPD exacerbation History of Present Illness: The patient is an 83-year-old male, with a history as outlined below, who presented to [facility] on March 23 as a transfer from [facility], after the patient presented there with complaints of nausea and vomiting. The patient believed that he had developed food poisoning after having ingested a sandwich prior to the development of his symptoms. It appears that a CT abdomen /pelvis was obtained in the emergency department at [place] which reportedly revealed evidence of a left lower lobe pneumonia. The patient was placed on ceftriaxone and azithromycin. Due to the lack of pulmonary specialty coverage there, the patient was transferred here for evaluation. The patient routinely follows with Dr. Hanna on an outpatient basis. He was last seen in the pulmonary medicine clinic by her nurse practitioner in November 2017. Pulmonary function testing completed in October 2016 revealed evidence of a partially reversible moderately severe mixed ventilatory defect with reduction in diffusing capacity. 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 He is maintained on scheduled Advair and as needed albuterol. He was also given a sample of Spiriva at his last office visit. 6 minute walk test also completed in November 2017 revealed no significant exertional oxygen desaturation. At the present time, the patient is afebrile hemodynamically stable. He is maintaining appropriate oxygen saturations on room air. He has been maintained on scheduled bronchodilators, as well as antibiotics since his admission. The patient has a very remote smoking history and states that he has been routinely taking 2.5 mg of prednisone daily as he feels that it helps with his chronic cough. Past Medical History Past Medical History (Chronic Problems): Chronic Problems (Last Reviewed 03/23/18 @ 03:41 by Marciano Addison MD) Carotid artery disease (Chronic) Cerebral infarction (Chronic) Gross hematuria (Chronic) Dyspnea (Chronic) Cough (Chronic) Wheezing (Chronic) Asthma (Chronic) Hypertensive urgency (Chronic) Sinusitis (Chronic) Hypertension (Chronic) Atherosclerotic heart disease of [place] coronary artery without angina pectoris (Chronic) Hyperlipidemia (Chronic) COPD (chronic obstructive pulmonary disease) (Chronic) Medical History: Medical History (Last Reviewed 03/23/18 @ 03:41 by Marciano Addison MD) History of CVA (cerebrovascular accident) (Acute) Z86.73 Carotid artery disease (Chronic) I77.9 Cerebral infarction (Chronic) I63.9 Gross hematuria (Chronic) R31.0 Dyspnea (Chronic) R06.00 Cough (Chronic) R05 Wheezing (Chronic) R06.2 Asthma (Chronic) J45.909 Acute bronchitis (Acute) J20.9 Hypertensive urgency (Chronic) I16.0 Sinusitis (Chronic) J32.9 Asthma exacerbation (Resolved) J45.901 Hypertension (Chronic) I10 Atherosclerotic heart disease of [place] coronary artery without angina pectoris (Chronic) I25.10 Hyperlipidemia (Chronic) E78.5 COPD (chronic obstructive pulmonary disease) (Chronic) J44.9 History of atrial fibrillation (Resolved) Z86.79 Dizziness (Inactive) R42 Allergies atorvastatin [From Lipitor] Allergy (Severe, Verified 11/11/17 07:06) Throat swelling and cough apixaban [From Eliquis] Adverse Reaction (Intermediate, Verified 11/11/17 07:06) Nose bleed dabigatran etexilate [From Pradaxa] Adverse Reaction (Intermediate, Verified 09/26 07:06) Hematuria alcohol Adverse Reaction (Verified 03/23/18 03:13) DOESNT FEEL GOOD CAN DRINK OUZO THATS IT PER PT Home Medications: Ambulatory Orders Medication Instructions Recorded Aspirin [Aspir-Low] 81 mg PO DAILY 08/25/16 Losartan Potassium [Cozaar] 50 mg PO BID 08/25/16 Metoprolol Tartrate [Lopressor 50 mg PO BID 08/25/16 (beta serenity)] albuterol sulfate HFA 90 2 puff INHALATION Q4H PRN #3 device 07/29/17 mcg/actuation aerosol inhaler fluticasone-salmeterol 230 mcg-21 2 puff INHALATION BID 11/11/17 mcg/actuation HFA aerosol inhaler Azelastine HCl 1 spray NASAL QHS 03/23/18 Fluticasone Propionate 1 spray NASAL DAILY 03/23/18 Surgical History: Surgical History (Last Reviewed 03/23/18 @ 03:41 by Marciano Addison MD) Status post nasal endoscopy with nasal polypectomy (Resolved) Z98.890, Z87.09 History of hernia repair (Resolved) Z98.890, Z87.19 History of tonsillectomy (Resolved) Z90.89 History of appendectomy (Resolved) Z90.49 S/P CABG x 4 (Resolved) Z95.1 Surgical History: tonsillectomy, - - CABG Lives: Spouse/ Significant Other Smoking Status: Former smoker Alcohol: Occasional - *Family History Maternal Family History: Family History (Last Reviewed 03/23/18 @ 03:41 by Marciano Addison MD) Mother Colon cancer Father Cancer Daughter Arthritis Review of Systems Constitutional: Denies: Chills, Fever Eyes: Denies: Blurred vision, Double vision HEENT: Denies: Head Aches, Sinus Congestion, Sinus Drainage Cardiovascular: Denies: Chest Pain, Palpitations Respiratory: Reports: Shortness of Breath. Denies: Cough, Sputum production Gastrointestinal: Reports: Nausea, Vomiting Genitourinary: Denies: Dysuria Musculoskeletal: Denies: Joint Pain, Joint Tenderness Skin: Denies: Rash, Wounds Neurological: Denies: Numbness, Tingling, Focal weakness Psychiatric: Denies: Anxiety, Depression, Homicidal Ideations, Suicidal Ideations Hematologic/ Lymphatic: Denies: Easy Bruising, Easy Bleeding Objective: The patient's most recent lab work, culture data and imaging studies have all been personally reviewed. Strep and urine Legionella antigens were negative. - Physical Exam General: Alert, Oriented x3, Cooperative, No apparent distress HEENT: Atraumatic, PERRLA, Normocephalic Oral: Moist Mucosa, No Gingival or Mucosal Lesions/ Ulcerations Neck: Supple, No Nodes, Trachea Midline Lungs: - - Lung malhotra are grossly clear to auscultation bilaterally without appreciable wheezes, rales or rhonchi. Cardiovascular: Regular rate, Regular Rhythm, Normal S1, Normal S2, No murmurs Abdomen: Bowel Sounds Present, Soft, Non Tender Extremities: No clubbing, No cyanosis, No edema Skin: No rashes, No breakdown Musculoskeletal: No Tenderness to Palpation of Joints or Extremities, No Muscle Wasting Lymphatic: No Cervical, Supraclavicular, or Inguinal Adenopathy Neurological: Neuro grossly intact Psych/Mental Status: Alert and oriented to time, place, person, mood and affect Vital Signs Temp Pulse Resp BP Pulse Ox 98.9 F 79 16 141/71 H 98 03/24/18 05:23 03/24/18 05:23 03/24/18 05:23 03/24/18 05:23 03/24/18 05:23 Oxygen Delivery Method Room Air Weight: 198 lb 6.656 oz Body Mass Index (BMI) 30.1 Microbiology Past 72 Hours 03/23/18 09:25 Streptococcus pneumoniae Antigen (M - Final Urine, Clean Catch 03/23/18 09:25 Legionella Antigen - Final Urine, Clean Catch Labs (Last 48 Hours) 03/23/18 03/23/18 04:54 04:54 WBC 18.5 H RBC 5.19 Hgb 15.4 Hct 44.7 MCV 86.1 MCH 29.7 MCHC 34.5 RDW 13.9 RDW Differential 43.0 Plt Count 205 MPV 9.3 Immature Gran % (Auto) 0.300 Neut % (Auto) 87.8 H Lymph % (Auto) 4.7 L [place] % (Auto) 7.0 Eos % (Auto) 0.1 Baso % (Auto) 0.1 Absolute Neuts (auto) 16.2 H Absolute Lymphs (auto) 0.87 Total Counted Not Reportable Sodium 141 Potassium 3.9 Chloride 105 Carbon Dioxide 25.0 Anion Gap 11 BUN 19 H Creatinine 1.23 Estim Creat Clear Calc 45.57 Est GFR (MDRD) Af Amer 73 Est GFR (MDRD) Non-Af 60 BUN/Creatinine Ratio 15.4 Glucose 134 H Calcium 8.9 Microbiology 03/23/18 09:25 Urine, Clean Catch Streptococcus pneumoniae Antigen (M - Final 03/23/18 09:25 Urine, Clean Catch Legionella Antigen - Final Assessment/Plan All Active Problems (Last Reviewed 03/23/18 @ 03:41 by Marciano Addison MD) Status post nasal endoscopy with nasal polypectomy (Resolved) History of hernia repair (Resolved) History of tonsillectomy (Resolved) History of appendectomy (Resolved) History of CVA (cerebrovascular accident) (Acute) Acute bronchitis (Acute) Asthma exacerbation (Resolved) S/P CABG x 4 (Resolved) History of atrial fibrillation (Resolved) RECOMMENDATIONS: 1. Okay from my perspective to discontinue antibiotics. 2. Discontinue budesonide and start prednisone 40 mg daily with plans for a 5 day burst. 3. Continue scheduled bronchodilators as ordered. 4. Perform walking oximetry study and if the patient is able to maintain oxygen saturations with ambulation, he can be discharged home from my perspective. 5. The patient is currently scheduled to follow-up with Dr. Kenny Hanna on May 16. He has been placed on the wait list for a sooner appointment, if one becomes available. 6. Resume baseline inhaler regimen at discharge. IMPRESSIONS: 1. Abdominal pain/nausea/vomiting Potentially secondary to a self-limited viral gastroenteritis. The patient is asymptomatic at this time. Outside hospital CT abdomen/pelvis revealed no significant intra-abdominal pathology. 2. Known COPD Although the patient was initially started on treatment for community-acquired pneumonia at [facility], upon my review of his CT abdomen/pelvis, the findings in his left lower lobe appear to be chronic in nature and are unlikely to represent an infectious etiology. In addition, the patient is at his baseline breathing quality and is not producing any sputum. Therefore, I would recommend discontinuation of antibiotics at this time. He does not appear to be experiencing an acute exacerbation of his underlying COPD. Recommend resumption of baseline inhalers at the time of his discharge. Please perform a walking oximetry study prior to consideration for discharge. This note was generated with [employer] dictation software. It may contain incorrect words, spelling, and punctuation that were not noted in checking the note before signing. Code Visit Inpatient E&M: 60033 Init Hosp L2
[2018-03-24 08:14] VITALS: BP 151/90; PULSE 84; RESP 16; TEMP 36.7; O2SAT 97
[2018-03-24 08:18] VITALS: PULSE 84
[2018-03-24] MEDS: Metoprolol Tartrate 50 MG Tablet PO (08:18)
[2018-03-24] MEDS: guaiFENesin 1,200 MG Tablet 1200 MG PO (08:19)
[2018-03-24] MEDS: Fluticasone 0.05% 1 SPRAY NASAL.SRY NASAL (08:19)
[2018-03-24] MEDS: Losartan Potassium 50 MG Tablet PO (08:19)
[2018-03-24] MEDS: Aspirin E.C. 81 MG Tablet PO (08:19)
[2018-03-24] MEDS: Heparin Injection (Vial) 5,000 UNIT/ML VIAL 5000 UNIT SC (08:19)
[2018-03-24 08:23] LABS: Absolute Lymphocyte Count 1.14 X10^3/ul (0.83-4.51); Absolute Neutrophil Count 10.3 X10^3/uL (2.0-7.7); Basophil# 0.04 X10^3/uL; Basophil% 0.3 % (0-1); Eosinophil# 0.43 X10^3/uL; Eosinophils% 3.3 % (0-5); Hematocrit 45.1 % (40-54); Hemoglobin 15.2 g/dl (13.0-16.5); Lymphocyte # 1.14 X10^3/ul (4.0); Lymphocyte % 8.8 % (19-41); Mean Corp Hgb Conc 33.7 g/gl (32-36); Mean Corpuscular Hgb 29.5 pg (27.0-32.0); Mean Corpuscular Volume 87.6 fL (80-94); Mean Platelet Vol. 9.9 fl (6.2-12.0); Monocyte# 0.96 X10^3/uL; Monocyte% 7.4 % (0-10); POSITIVE COUNT NO; POSITIVE DIFFERENTIAL NO; POSITIVE MORPHOLOGY NO; Platelet Count 201 K/mm3 (150-450); RBC Distribution Width SD 45.1 fl (35.1-43.9); Red Blood Count 5.15 M/mm3 (4.6-6.2); White Blood Count 12.9 K/mm3 (4.4-11.0)
[2018-03-24] MEDS: predniSONE 20 MG Tablet 40 MG PO (08:30)
--- NOTE | 2018-03-24 10:52 | PCM.DC ---
- Discharge Diagnoses Reason(s) for Visit for Discharge Instructions: suspected pneumonia You will use the following diet at home:: No restrictions, Regular Your food should be the consistency of: Regular Discharge Activity: Return to Normal Activity, No Restrictions Allergies/Adverse Reactions: Allergies atorvastatin [From Lipitor] Allergy (Severe, Verified 11/11/17 07:06) Throat swelling and cough apixaban [From Eliquis] Adverse Reaction (Intermediate, Verified 11/11/17 07:06) Nose bleed dabigatran etexilate [From Pradaxa] Adverse Reaction (Intermediate, Verified 11/11/17 07:06) Hematuria alcohol Adverse Reaction (Verified 03/23/18 03:13) DOESNT FEEL GOOD CAN DRINK OUZO THATS IT PER PT Medications to take at Discharge Aspirin [Aspir-Low] 81 mg PO DAILY 08/25/16 Losartan Potassium [Cozaar] 50 mg PO BID 08/25/16 Metoprolol Tartrate [Lopressor (beta serenity)] 50 mg PO BID 08/25/16 albuterol sulfate HFA 90 mcg/actuation aerosol inhaler 2 puff INHALATION Q4H PRN #3 device 07/29/17 fluticasone-salmeterol 230 mcg-21 mcg/actuation HFA aerosol inhaler 2 puff INHALATION BID 11/11/17 Azelastine HCl 1 spray NASAL QHS 03/23/18 Fluticasone Propionate 1 spray NASAL DAILY 03/23/18 Primary Care Physician: Care Physician,No Primary [Primary Care Provider] - Please follow up with your Primary Care Physician in: 1-2 weeks Test Results: Test results from this visit will be discussed in further detail at your follow-up appointment, if applicable. Proposed Discharge Date: 03/24/18
--- NOTE | 2018-03-24 10:54 | PCM.DC.SUM ---
Discharge Date and Diagnosis Date of Admission: 03/23/18 Date of Discharge: 03/24/18 - Primary Discharge Diagnosis Suspected pneumonia - ruled out Acute gastroenteritis/food poisoning - resolved - Secondary Discharge Diagnosis Chronic Problems (Last Reviewed 03/23/18 @ 03:41 by Marciano Addison MD) Carotid artery disease (Chronic) Cerebral infarction (Chronic) Gross hematuria (Chronic) Dyspnea (Chronic) Cough (Chronic) Wheezing (Chronic) Asthma (Chronic) Hypertensive urgency (Chronic) Sinusitis (Chronic) Hypertension (Chronic) Atherosclerotic heart disease of [place] coronary artery without angina pectoris (Chronic) Hyperlipidemia (Chronic) COPD (chronic obstructive pulmonary disease) (Chronic) Hospital Course and Treatment Dr. Jacobson for pulmonology Operations: None Procedures: None Summary of Care Provided: The patient is a 83 year old M transferred from [facility] on account of suspected pneumonia. This was essentially clinically ruled out here. he had presented there with symptoms of acute food poisoning and these have completely resolved. Today he has no gastrointestinal or respiratory symptoms and is doing fine. Stable for discharge home[] Discharge Diet: No Restrictions Discharge Activity: Return to Normal Activity, No Restrictions Home Medications: Medications to take at Discharge Aspirin [Aspir-Low] 81 mg PO DAILY 08/25/16 Losartan Potassium [Cozaar] 50 mg PO BID 08/25/16 Metoprolol Tartrate [Lopressor (beta serenity)] 50 mg PO BID 08/25/16 albuterol sulfate HFA 90 mcg/actuation aerosol inhaler 2 puff INHALATION Q4H PRN #3 device 07/29/17 fluticasone-salmeterol 230 mcg-21 mcg/actuation HFA aerosol inhaler 2 puff INHALATION BID 11/11/17 Azelastine HCl 1 spray NASAL QHS 03/23/18 Fluticasone Propionate 1 spray NASAL DAILY 03/23/18 Primary Care Physician: Care Physician,No Primary [Primary Care Provider] - Please follow up with your Primary Care Physician in: 1-2 weeks Disposition: Home Minutes spent on discharge:: 30 Patient Condition:: Good Medical Necessity - Tobacco Use Smoking Status: Former smoker Meaningful Use Info Meaningful Use Diagnoses (Choose all that apply): None applicable Code Visit Inpatient E&M: 16398 Disch Hosp
--- NOTE | 2018-03-24 10:58 | DS.PCM_ITS ---
Discharge Date and Diagnosis Date of Admission: 03/23/18 Date of Discharge: 03/24/18 - Primary Discharge Diagnosis Suspected pneumonia - ruled out Acute gastroenteritis/food poisoning - resolved - Secondary Discharge Diagnosis Chronic Problems (Last Reviewed 03/23/18 @ 03:41 by Marciano Addison MD) Carotid artery disease (Chronic) Cerebral infarction (Chronic) Gross hematuria (Chronic) Dyspnea (Chronic) Cough (Chronic) Wheezing (Chronic) Asthma (Chronic) Hypertensive urgency (Chronic) Sinusitis (Chronic) Hypertension (Chronic) Atherosclerotic heart disease of [place] coronary artery without angina pectoris (Chronic) Hyperlipidemia (Chronic) COPD (chronic obstructive pulmonary disease) (Chronic) Hospital Course and Treatment Dr. Jacobson for pulmonology Operations: None Procedures: None Summary of Care Provided: The patient is a 83 year old M transferred from [facility] on account of suspected pneumonia. This was essentially clinically ruled out here. he had presented there with symptoms of acute food poisoning and these have completely resolved. Today he has no gastrointestinal or respiratory symptoms and is doing fine. Stable for discharge home[] Discharge Diet: No Restrictions Discharge Activity: Return to Normal Activity, No Restrictions Home Medications: Medications to take at Discharge Aspirin [Aspir-Low] 81 mg PO DAILY 08/25/16 Losartan Potassium [Cozaar] 50 mg PO BID 08/25/16 Metoprolol Tartrate [Lopressor (beta serenity)] 50 mg PO BID 08/25/16 albuterol sulfate HFA 90 mcg/actuation aerosol inhaler 2 puff INHALATION Q4H PRN #3 device 07/29/17 fluticasone-salmeterol 230 mcg-21 mcg/actuation HFA aerosol inhaler 2 puff INHALATION BID 11/11/17 Azelastine HCl 1 spray NASAL QHS 03/23/18 Fluticasone Propionate 1 spray NASAL DAILY 03/23/18 Primary Care Physician: Care Physician,No Primary [Primary Care Provider] - Please follow up with your Primary Care Physician in: 1-2 weeks Disposition: Home Minutes spent on discharge:: 30 Patient Condition:: Good Medical Necessity - Tobacco Use Smoking Status: Former smoker Meaningful Use Info Meaningful Use Diagnoses (Choose all that apply): None applicable Code Visit Inpatient E&M: 60152 Disch Hosp
[2018-03-24 11:12] VITALS: O2SAT 94; O2SAT 95
--- NOTE | 2018-03-24 11:24 | CASEMGMT ---
RN CM Note. DC Plan: Home today -Discussed need for PCP with pt. He prefers physician in [place]. List of PCP offices in [place] given to pt. -Appointment for f/u for this admission made with RUPERT Colindres, pulmonology for Apr 07, 2018 @ 2500. Given to patient. -No further dc needs identified. Antony ALVES RN AC
== END 2018-03-24 11:25 | disposition home or self-care (01) | DRG 392 ==
PROVIDERS: Admitting Provider Hospitalist; Visit Provider Internal Medicine
DX: A05.9 Bacterial foodborne intoxication, unspecified (principal); I10 Essential (primary) hypertension; Z87.891 Personal history of nicotine dependence; Z95.1 Presence of aortocoronary bypass graft; J44.9 Chronic obstructive pulmonary disease, unspecified; I25.10 Atherosclerotic heart disease of native coronary artery without angina pectoris
CPT/HCPCS: 36415; 80048; 85025; 87449; 94640; 94667; J7050; A4216

== ENCOUNTER → 2018-05-06 13:08 | Outpatient (CLI) | payer MEDICARE, BC, OTHER, SELFPAY | PROVIDERS: Family Provider Internal Medicine; PCP Internal Medicine; Referring Provider Nurse Practitioner Acute Care; Visit Provider Nurse Practitioner Acute Care | DX: J44.9 Chronic obstructive pulmonary disease, unspecified (principal) ==

== ENCOUNTER → 2018-07-08 14:58 | Outpatient (CLI) | payer MEDICARE, BC, OTHER, SELFPAY ==
[2018-04-07 10:42] VITALS: BMI 29.0
== END ==
PROVIDERS: Referring Provider Nurse Practitioner Acute Care; Visit Provider Nurse Practitioner Acute Care
DX: R05 Cough (principal)
CPT/HCPCS: 87070; 87077; 87205

== ENCOUNTER → 2018-09-26 12:42 | Outpatient (CLI) | payer MEDICARE, BC, OTHER, SELFPAY ==
[2018-09-08 10:24] VITALS: BMI 29.2
[2018-09-26 12:50] VITALS: PULSE 103; PULSE 104; PULSE 108; PULSE 111; PULSE 88; PULSE 90; PULSE 95; PULSE 98; O2SAT 93; O2SAT 94; O2SAT 95; O2SAT 96; O2SAT 97; O2SAT 98
--- NOTE | 2018-09-26 14:16 | CPS ---
pt did great effort for the walk test. once the patient was siting and recovering he asked me about the results of the test and if he qualified for oxygen. i informed him he did not drop to the 88%. he got extremely angry and yelled at me and left abruptly. Dr. Hanna was made aware .
--- NOTE | 2018-09-26 15:58 | PCM.PSN.6M ---
PSN 6 Minute Walk Test - 6 Minute Walk Test 6 Minute Walk Test: 6 Minute Walk Test PSN:6-Minute Walk Test Start: 09/26/18 14:13 Freq: Status: Active Protocol: [id number] Document 09/26/18 12:50 EW (Rec: 09/26/18 14:19 EW [id number]) 6 Minute Walk Test Date Performed 09/26/18 Time Performed 12:50 Height 5 ft 8 in Weight: 86.636 kg Weight in Pounds 191.[address]: Kenny Hnana Assistive device used: None Pre-test Oxygen Delivery Method Room Air Pulse Ox (%) 98 Pulse Rate (60-100 beats/min) 90 Dyspnea Dudley Scale (0-10) 2 Exertion Dudley Scale (6-20) 8 1st minute Oxygen Delivery Method Room Air Pulse Ox (%) 98 Pulse Rate (60-100 beats/min) 88 2nd minute Oxygen Delivery Method Room Air Pulse Ox (%) 95 Pulse Rate (60-100 beats/min) 98 3rd minute Oxygen Delivery Method Room Air Pulse Ox (%) 93 Pulse Rate (60-100 beats/min) 103 H 4th minute Oxygen Delivery Method Room Air Pulse Ox (%) 94 Pulse Rate (60-100 beats/min) 108 H 5th minute Oxygen Delivery Method Room Air Pulse Ox (%) 96 Pulse Rate (60-100 beats/min) 104 H 6th minute Oxygen Delivery Method Room Air Pulse Ox (%) 97 Pulse Rate (60-100 beats/min) 111 H Post-test Oxygen Delivery Method Room Air Pulse Ox (%) 96 Pulse Rate (60-100 beats/min) 95 Dyspnea Dudley Scale (0-10) 5 Exertion Dudley Scale (6-20) 8 Reported Symptoms Increased Work of Breathing Full Laps Walked 24 Partial Lap, Number of Tiles Walked 22 Total Distance Walked (ft) 1438 09/26/18 14:16 Cardiopulmonary Services by Marifer Vivas pt did great effort for the walk test. once the patient was siting and recovering he asked me about the results of the test and if he qualified for oxygen. i informed him he did not drop to the 88%. he got extremely angry and yelled at me and left abruptly. Dr. Hanna was made aware . Initialized on 09/26/18 14:16 - END OF NOTE - Interpretation Interpretation: The patient was able to ambulate 1438 feet over the course of 6 minutes on room air with no assistive devices or breaks. The patient did experience significant desaturation as low as 93% with reflexive tachycardia. These findings are consistent with a respiratory limitation for exercise tolerance - Recommendations Recommendations: No supplemental oxygen is indicated at this time.
== END ==
PROVIDERS: Referring Provider Internal Medicine Critical Care Medicine; Visit Provider Internal Medicine Critical Care Medicine
DX: I25.10 Atherosclerotic heart disease of native coronary artery without angina pectoris (principal); J45.50 Severe persistent asthma, uncomplicated
CPT/HCPCS: 94618

== ENCOUNTER → 2018-09-29 14:42 | Outpatient (CLI) | payer MEDICARE, BC, OTHER, SELFPAY ==
[2018-09-29 13:31] VITALS: BMI 29.2
[2018-09-29 15:13] LABS: Absolute Lymphocyte Count 1.18 X10^3/ul (0.83-4.51); Absolute Neutrophil Count 10.1 X10^3/uL (2.0-7.7); Basophil# 0.05 X10^3/uL; Basophil% 0.4 % (0-1); Eosinophil# 0.12 X10^3/uL; Hematocrit 49.6 % (40-54); Hemoglobin 17.3 g/dl (13.0-16.5); Lymphocyte # 1.18 X10^3/ul (4.0); Lymphocyte % 9.7 % (19-41); Mean Corp Hgb Conc 34.9 g/gl (32-36); Mean Corpuscular Hgb 30.1 pg (27.0-32.0); Mean Corpuscular Volume 86.4 fL (80-94); Mean Platelet Vol. 9.9 fl (6.2-12.0); Monocyte# 0.64 X10^3/uL; Monocyte% 5.3 % (0-10); Neutrophil # 10.11 X10^3/uL (2.7-7.7); Platelet Count 199 K/mm3 (150-450); RBC Distribution Width CV 14.7 % (11.6-14.6); RBC Distribution Width SD 46.1 fl (35.1-43.9); Red Blood Count 5.74 M/mm3 (4.6-6.2); White Blood Count 12.2 K/mm3 (4.4-11.0)
[2018-09-29 15:16] LABS: POSITIVE COUNT NO; POSITIVE DIFFERENTIAL NO; POSITIVE MORPHOLOGY NO
[2018-09-29 15:36] LABS: Anion Gap 8 (5-15); BUN 24 mg/dL (7-18); BUN/Creat Ratio 20.7 RATIO (10-20); Calcium,Total 8.9 mg/dL (8.5-10.1); Chloride 107 mmol/L (98-107); Creatinine, Serum 1.16 mg/dL (0.70-1.30); EST Glomerular Filtration Rate 64 mL/min (>60); Est Glom Filt Rate - Afr Amer 78 mL/min (>60); Glucose 99 mg/dL (74-106); Potassium 4.2 mmol/L (3.5-5.1); Sodium Level 140 mmol/L (136-145)
[2018-09-29 15:42] LABS: BNP,B-Type NATRIURETIC PEPTIDE 145.9 pg/mL (0-100)
== END ==
PROVIDERS: Visit Provider Nurse Practitioner Acute Care
DX: R06.00 Dyspnea, unspecified (principal)
CPT/HCPCS: 36415; 80048; 83880; 84484; 85025

== ENCOUNTER → 2018-11-17 | Outpatient (CLI) | payer MEDICARE, OTHER, BC, SELFPAY ==
[2018-09-29 13:31] VITALS: BMI 29.2
--- NOTE | 2018-11-17 14:40 | CT_ITS ---
STUDY: CTA CHEST REASON FOR EXAM: Male, 83 years old. Subclavian artery stenosis. RADIATION DOSAGE (If Supplied By Facility): CTDIvol = ( 11.25 ) mGy, DLP = ( 577.16 ) mGycm TECHNIQUE: The examination was performed with the intravenous administration of 100 IV Isovue 370. Post-processing of the angiographic images was performed, with multiplanar reformation and 3D reconstruction. Individualized dose optimization techniques were used for this CT. COMPARISON: 09/14/2016 FINDINGS: There is dependent atelectasis noted in the lungs. There are stable subcentimeter pulmonary nodules in the lung bases, measuring up to 8 mm in the right lower lobe. There are no new nodules or masses. There are no pulmonary infiltrates or pleural effusions. There is no pneumothorax. There are stable postsurgical changes from a prior sternotomy and coronary artery bypass. The heart is mildly enlarged, but stable. There is no pericardial effusion. There is no evidence of thoracic aortic aneurysm or dissection. The great vessels are patent and normal in caliber. There is no evidence of subclavian artery stenosis. There is no evidence of pulmonary embolus. Images through the upper abdomen demonstrate no significant abnormality. There are no destructive osseous lesions. CT/CTA Chest W/WO Contrast IMPRESSION: Normal CT angiogram of the chest. No evidence of subclavian artery stenosis. Stable subpleural subcentimeter nodules at the lung bases. No new nodules or masses. No pulmonary infiltrate or pleural effusions. Electronically Signed: Melvin Ye, at 15:37 EDT Tel , Service support ,
[2018-11-17 15:21] LABS: CREATININE FINGERSTICK 1.3 mg/dL (0.70-1.30)
== END | disposition home or self-care (01) ==
LOC: CT 14:39
PROVIDERS: Referring Provider Internal Medicine Interventional Cardiology; Visit Provider Internal Medicine Interventional Cardiology
DX: I25.10 Atherosclerotic heart disease of native coronary artery without angina pectoris (principal)
CPT/HCPCS: 71275; Q9967

== ENCOUNTER → 2019-03-09 | Outpatient (CLI) | payer MEDICARE, OTHER, BC, SELFPAY ==
[2019-03-09 12:42] VITALS: BMI 30.6
[2019-03-09 14:54] LABS: Absolute Lymphocyte Count 0.75 X10^3/uL (0.83-4.51); Absolute Neutrophil Count 11.5 X10^3/uL (2.0-7.7); Basophil# 0.05 X10^3/uL; Basophil% 0.4 % (0-1); Eosinophil# 0.01 X10^3/uL; Eosinophils% 0.1 % (0-5); Hemoglobin 16.2 g/dL (13.0-16.5); Lymphocyte # 0.75 X10^3/ul (4.0); Lymphocyte % 5.7 % (19-41); Mean Corp Hgb Conc 33.8 g/dL (32-36); Mean Corpuscular Volume 88.9 fL (80-94); Monocyte% 5.3 % (0-10); NRBC Flagged by Analyzer 0 % (0-5); Neutrophil # 11.53 X10^3/uL (2.7-7.7); Neutrophil % 87.2 % (47-70); Platelet Count 197 K/mm3 (150-450); RBC Distribution Width SD 45.1 fl (35.1-43.9); White Blood Count 13.2 K/mm3 (4.4-11.0)
[2019-03-09 15:20] LABS: Anion Gap 9 (5-15); BUN 19 mg/dL (7-18); BUN/Creat Ratio 17.1 RATIO (10-20); Calcium,Total 8.9 mg/dL (8.5-10.1); Chloride 110 mmol/L (98-107); Creatinine, Serum 1.11 mg/dL (0.70-1.30); EST Glomerular Filtration Rate 67 mL/min (>60); Est Glom Filt Rate - Afr Amer 82 mL/min (>60); Glucose 86 mg/dL (74-106); Potassium 4.1 mmol/L (3.5-5.1); Sodium Level 143 mmol/L (136-145)
[2019-03-09 15:25] LABS: BNP,B-Type NATRIURETIC PEPTIDE 259.2 pg/mL (0-100)
== END | disposition home or self-care (01) ==
LOC: LAB 13:37
PROVIDERS: Referring Provider Internal Medicine Critical Care Medicine; Visit Provider Internal Medicine Critical Care Medicine
DX: R06.09 Other forms of dyspnea (principal)
CPT/HCPCS: 36415; 80048; 83880; 85025